=== PATIENT | female | born 1965 | race Caucasian/White ===

== ENCOUNTER 2016-10-20 21:52 | Emergency (ER) | payer MEDICAID ==
[~2016-10-20] VITALS: Ht 157.5 cm; Wt 81.8 kg
[~2016-10-20 21:52] MED LIST: ALBUTEROL0.09 MG/A1 IH; AMOXICILLIN 50500 MG PO; HCTZ 25MG TAB25 MG PO; MEVACOR10 MG PO; MOBIC15 MG PO; NO HOME MEDICATIONS; NORCO 325 MG-51 TAB PO; ULTRAM 50MG TAB50 MG PO
[2016-10-20 21:54] VITALS: BP 130/85; PULSE 86; TEMP 98.7
[2016-10-20] MEDS ORDERED: ULTRAM 50MG TAB50 MG PO (22:16)
[2016-10-20] MEDS ORDERED: PERCOCET 325 MG1 TA2 PO (22:16)
== END 2016-10-20 22:37 | disposition home or self-care (01) ==
LOC: COL.ER 21:52
DX: M25.562 Pain in left knee (principal); I10 Essential (primary) hypertension

== ENCOUNTER 2017-06-21 12:42 | Emergency (ER) | payer MEDICAID ==
[~2017-06-21] VITALS: Ht 157.5 cm; Wt 104.5 kg
[~2017-06-21 12:42] MED LIST changes: +PERCOCET 325 MG1 TA2 PO
[2017-06-21 12:44] VITALS: BP 199/88; TEMP 99
[2017-06-21 15:16] VITALS: PULSE 86
== END 2017-06-21 15:19 | disposition home or self-care (01) ==
LOC: COL.ER 12:42
DX: M79.622 Pain in left upper arm (principal)

== ENCOUNTER 2018-03-14 12:53 | Emergency (ER) | payer MEDICAID ==
[~2018-03-14] VITALS: Ht 157.5 cm; Wt 102.3 kg
[2018-03-14 13:07] VITALS: TEMP 98.5
[2018-03-14 14:33] LABS: BASO % 0.4 % (0.0-2.0); EOS # 0.1 (0.0-0.7); EOS % 1.1 % (0-4.0); GRAN # 6.4 (1.4-6.5); GRAN % 69.3 % (42.2-75.2); HEMATOCRIT 43.6 % (37.0-47.0); HEMOGLOBIN 14.6 g/dl (12.5-16.0); LYMPH # 1.9 (1.2-3.4); LYMPH % 21.2 % (20.0-51.0); MEAN CELL VOLUME 97 fl (80.0-100.0); MEAN CORPUSCULAR HEMOGLOBIN 32 pg (27.0-31.0); MEAN CORPUSCULAR HGB CONC 34 g/dl (33.0-37.0); MEAN PLATELET VOLUME 10.6 fl (7.4-10.4); MONO # 0.7 (0.1-0.6); MONO % 7.8 % (1.7-9.3); PLATELET COUNT 272 K/mm3 (130-400); RED BLOOD COUNT 4.51 M/mm3 (4.10-5.30); REDCELL DISTRIBUTION WIDTH-CV 12.6 % (11.5-14.5)
[2018-03-14 14:42] LABS: ALBUMIN 4.1 gm/dL (3.5-5.0); BILIRUBIN,TOTAL 0.7 mg/dL (0.0-1.0); C-REACTIVE PROTEIN 2.3 mg/dL (0.0-0.9); CALCIUM 9.7 mg/dL (8.4-10.2); CREATININE, serum 0.63 mg/dL (0.52-1.25); POTASSIUM 3.8 mmol/L (3.4-5.0); TOTAL PROTEIN 7.7 gm/dL (6.4-8.2); URIC ACID 8.9 mg/dL (2.5-6.2)
[2018-03-14 15:15] LABS: ERYTHROCYTE SEDIMENTATION RATE 28 mm/hr (0-30)
[2018-03-14] MEDS ORDERED: BACTRIM DS 8001 TAB PO (16:12)
[2018-03-14] MEDS ORDERED: IBU800 M1 PO (16:12)
[2018-03-14] MEDS ORDERED: CEPHALEXIN500 M1 PO (16:12)
[2018-03-14 16:53] VITALS: BP 142/79; PULSE 85
== END 2018-03-14 16:53 | disposition home or self-care (01) ==
LOC: COL.ER 12:53
PROVIDERS: Nurse Practitioner
DX: L03.115 Cellulitis of right lower limb (principal); I10 Essential (primary) hypertension; M10.9 Gout, unspecified

== ENCOUNTER 2021-11-20 20:42 | Emergency (ER) | payer MEDICAID ==
[~2021-11-20] VITALS: Ht 157.5 cm; Wt 90.0 kg
[~2021-11-20 20:42] MED LIST changes: +BACTRIM DS 8001 TAB PO; +CEPHALEXIN500 M1 PO; +IBU800 M1 PO
[2021-11-20 20:43] VITALS: TEMP 97.1
[2021-11-20] MEDS ORDERED: MEDROL 4MG DOSPA4 MG PO (20:57)
[2021-11-20 21:06] VITALS: BP 154/78; PULSE 88
== END 2021-11-20 21:07 | disposition home or self-care (01) ==
LOC: COL.ER 20:42
DX: M19.072 Primary osteoarthritis, left ankle and foot (principal); Z28.310 Unvaccinated for COVID-19
CPT/HCPCS: J1885